=== PATIENT | male | born 1990 | race Caucasian/White ===

== ENCOUNTER 2021-10-02 08:28 | Emergency (ER) | payer OTHER, SELFPAY ==
[2021-10-02 08:41] VITALS: BP 128/69; PULSE 75; RESP 20; TEMP 36.7; O2SAT 98
--- NOTE | 2021-10-02 08:42 | ED.URI ---
HPI - URI/Sore Throat General Chief Complaint: Upper Respiratory Infection Stated Complaint: chest congestion cough Time Seen by Provider: 10/02/21 09:14 Source: patient and RN notes reviewed Mode of arrival: ambulatory Limitations: no limitations History of Present Illness HPI Narrative: 31-year-old male presents concern for persistent cough, chest congestion, nasal congestion and drainage. Reports nasal congestion for approximately 1 week, chest congestion and cough worsened over the last 3 days. Reports has been taking [id number] medications without. He reports fever yesterday. He denies chills, sweats. Reports general malaise. Reports his son had cold symptoms but they were not severe. MD elicited complaint: cough and nasal congestion Related Data Allergies Allergy/AdvReac Type Severity Reaction Status Date / Time No Known Allergies Allergy Verified 10/02/21 09:18 Review of Systems Review of Systems: CONSTITUTIONAL: Reports malaise, reports fever. EYES: Denies visual changes, redness, or discharge. ENT: Reports rhinorrhea, congestion. Denies sinus pain, otalgia and sore throat. CARDIOVASCULAR: Denies chest pain, palpitations, or edema. RESPIRATORY: Reports cough. Denies dyspnea. GASTROINTESTINAL: Denies abdominal pain, nausea, vomiting, diarrhea SKIN: Denies rash or itching. MUSCULOSKELETAL: Denies myalgia. NEUROLOGIC: Denies headache. All systems reviewed & are unremarkable except as noted in HPI and below PMFSH Comments At time of signature, agree with nursing past medical, surgical, social and family history. There is no relevant family history pertinent to the presenting complaint Exam Narrative: GENERAL: Well-appearing, well-nourished, and in no acute distress. HEAD: Normocephalic EYES: PERRLA, conjunctivae clear ENT: Nares clear, turbinates edematous and erythematous. Mucous membranes moist. TM pearly luque with dull light reflex bilaterally; no tragal tenderness. Oropharynx not erythematous without lesions. Tonsils not enlarged and without exudate, no drooling, no hoarseness, no trismus, uvula midline. NECK: Supple. No lymphadenopathy CHEST: Slight rhonchi in the right upper lobe, otherwise clear to auscultation, breath sounds equal. No wheezing, rales, or stridor. No respiratory distress, speaks in full sentences. Cough noted HEART: Regular rate and rhythm. No murmur heard. SKIN: Warm, dry, no rash. NEURO: Alert and oriented x3. PSYCH: Normal mood and affect Course Course Emergency Course: Patient is aware of diagnosis, understands and agrees to treatment plan. Anticipatory guidance given. Patient agrees to follow-up as directed and is aware of reasons to seek care at the emergency department. Portions of this record may have been created with voice recognition software Level of Care: Express Care Visit Vital Signs Vital signs: Reviewed. MDM - URI/Sore Throat MDM Narrative Medical decision making narrative: Differential diagnosis considered: Choi virus, strep pharyngitis, allergic rhinitis, upper respiratory tract infection, sinusitis, rhinosinusitis, nasopharyngitis. viral pharyngitis, otitis media, otitis externa, pneumonia, bronchitis, viral cough syndrome, viral syndrome, and influenza. Exam findings show no acute concerns or changes; patient is non-toxic appearing and is in no distress. Patient is appropriate for outpatient treatment and follow-up. Lab Data Attestation: I reviewed the patient's lab results. Critical Care Time Critical Care Time Critical Care Time: No Discharge Plan Discharge Clinical Impression: Sinobronchitis Patient Disposition: Home, Self-Care Condition: Stable Instructions: Antibiotic Form, Acute Bronchitis (ED) Additional Instructions: Take medications as prescribed Recommend antihistamine such as Benadryl at night time and Zyrtec or Maye during the day Cough syrup may cause drowsiness; avoid driving or take it at night time. Also, recommend sympto
== END 2021-10-02 09:28 | disposition home or self-care (01) ==
PROVIDERS: Emergency Provider Nurse Practitioner
DX: J32.9 Chronic sinusitis, unspecified (principal); J40 Bronchitis, not specified as acute or chronic
CPT/HCPCS: 99213; G0463

== ENCOUNTER 2022-02-13 17:54 | Emergency (ER) | payer OTHER, SELFPAY ==
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
[2022-02-13 18:05] VITALS: BP 121/78; PULSE 77; RESP 18; TEMP 36.8; O2SAT 99
--- NOTE | 2022-02-13 18:20 | PC.NURSE ---
PT DECLINED ICE FOR COMFORT
== END 2022-02-13 18:20 | disposition home or self-care (01) ==
PROVIDERS: Emergency Provider Nurse Practitioner Family
DX: L03.115 Cellulitis of right lower limb (principal); S81.801A Unspecified open wound, right lower leg, initial encounter; V86.96XA Unspecified occupant of dirt bike or motor/cross bike injured in nontraffic accident, initial encounter
CPT/HCPCS: 73590; 99213; G0463

== ENCOUNTER 2024-08-16 12:40 | Emergency (ER) | payer OTHER, SELFPAY ==
[2024-08-16 12:49] VITALS: BP 136/75; PULSE 85; RESP 16; TEMP 36.8; O2SAT 98
--- NOTE | 2024-08-16 12:52 | ED.EAR ---
HPI - Ear Problem General Chief complaint: Ear Stated complaint: Headache/Ear Pain Time Seen by Provider: 08/16/24 12:52 Source: patient Mode of arrival: ambulatory Limitations: no limitations History of Present Illness HPI Narrative: 34-year-old male presented for complaint of left ear, neck and head pain. Onset 4 days. He denies known injury but states he has been throwing wood. Also works out regularly. Denies Pain radiating into the arm, numbness, tingling, or weakness of the extremity. Rates pain 6/10. Taking hydrocodone for chronic back pain but states he has not had it for a week, has not taken anything for this pain. Denies tinnitus, dizziness, decreased hearing, nasal congestion, fever. MD Complaint: ear pain Related Data Home Medications ?Medication ?Instructions ?Recorded ?Confirmed ?Last Taken ?Type hydrocodone 7.5 mg-acetaminophen tablet 08/16/24 Unknown History 325 mg tablet testosterone cypionate 200 mg/mL mg 08/16/24 Unknown History intramuscular oil Allergies Allergy/AdvReac Type Severity Reaction Status Date / Time No Known Allergies Allergy Verified 02/13/22 17:59 Review of Systems Review of Systems: CONSTITUTIONAL: Denies malaise, chills, or fever. EYES: Denies visual changes, redness, or discharge. ENT: Denies rhinorrhea, congestion, sinus pain, and sore throat. Reports ear pain CARDIOVASCULAR: Denies chest pain, palpitations, or edema. RESPIRATORY: Denies cough or dyspnea. GASTROINTESTINAL: Denies abdominal pain, nausea, vomiting, diarrhea SKIN: Denies rash or itching. MUSCULOSKELETAL: Reports head and neck pain All systems reviewed & are unremarkable except as noted in HPI and below [facility] Comments At time of signature, agree with nursing past medical, surgical, social and family history. There is no relevant family history pertinent to the presenting complaint Exam Narrative: GENERAL: Well-appearing EYES: conjunctivae clear ENT: Nares clear. Mucous membranes moist. TM pearly luque with dull light reflex bilaterally; no tragal tenderness. Oropharynx not erythematous without lesions. no drooling, no hoarseness, no trismus, uvula midline. NECK: Supple. No lymphadenopathy, full ROM. Mild tender with palpation to left neck. CHEST: Clear to auscultation, breath sounds equal. HEART: Regular rate and rhythm. No murmur heard. SKIN: Warm, dry, no rash. NEURO: Alert and oriented x3. PSYCH: Normal mood and affect Course Course Emergency Course: Patient is aware of diagnosis, understands and agrees to treatment plan. Anticipatory guidance given. Patient agrees to follow-up as directed and is aware of reasons to seek care at the emergency department. Portions of this record may have been created with voice recognition software Level of Care: Express Care Visit Vital Signs Vital signs: Vital Signs Temperature 98.2 F 08/16/24 12:49 Pulse Rate 85 08/16/24 12:49 Respiratory Rate 16 08/16/24 12:49 Blood Pressure 136/75 08/16/24 12:49 Pulse Oximetry 98 08/16/24 12:49 Oxygen Delivery Room Air 08/16/24 12:49 Temperature 98.2 F 08/16/24 12:49 Pulse Rate 85 08/16/24 12:49 Respiratory Rate 16 08/16/24 12:49 Blood Pressure 136/75 08/16/24 12:49 Pulse Oximetry 98 08/16/24 12:49 Oxygen Delivery Room Air 08/16/24 12:49 Reviewed Medical Decision Making MDM Narrative Medical decision making narrative: Discussed physical exam findings, no apparent ear infection. Suspect musculoskeletal strain. Advised supportive measures and signs/symptoms to go to the ER. Patient is appropriate for outpatient treatment and follow-up with pcp. Differential Diagnosis Differential Diagnosis: Coronavirus, strep pharyngitis, allergic rhinitis, upper respiratory tract infection, sinusitis, rhinosinusitis, nasopharyngitis, viral pharyngitis, otitis media, otitis externa, eustachian tube dysfunction, foreign body, cerumen impaction. Vital Signs Vital Signs: Vital Signs Temperature 98.2 F 08/16/24 12:49 Pulse Rate 85 08/16/24 12:49 Respiratory Rate 16 08/16/24 12:49 Blood Pressure 136/75 08/16/24 12:49 Pulse Oximetry 98 08/16/24 12:49 Oxygen Delivery Room Air 08/16/24 12:49 Temperature 98.2 F 08/16/24 12:49 Pulse Rate 85 08/16/24 12:49 Respiratory Rate 16 08/16/24 12:49 Blood Pressure 136/75 08/16/24 12:49 Pulse Oximetry 98 08/16/24 12:49 Oxygen Delivery Room Air 03/26/25 12:49 Discharge Plan Discharge Clinical Impression: Headache Qualifiers: Headache type: unspecified Headache chronicity pattern: acute headache Intractability: not intractable Qualified Code(s): R51.9 - Headache, unspecified Patient Disposition: Home, Self-Care Condition: Stable Instructions: Antibiotic Form, Acute Headache (ED) Additional Instructions: Rest. Avoid pushing, pulling, lifting or anything that worsens the symptoms Tylenol 1000mg every 8 hours as needed Take the steroid as directed Cyclobenzaprine (Flexeril) is a muscle relaxer. Take it as directed. It can cause drowsiness so do not drive or operate machinery until you know how it makes you feel. Do not take it with other sedating medications. Alternate ice/heat to the site. Lidocaine or salon pas pain patch or use pain cream like icy/hot or biofreeze. Follow up with your primary care provider as needed in 1 week Go to the ER for worsening symptoms or concerns Patient Language: Azeri Prescriptions: New cyclobenzaprine 10 mg tablet 10 mg PO TID PRN (Reason: muscle spasm) Qty: 10 0RF methylprednisolone [Medrol (Mihai)] 4 mg tablets,dose pack See Rx Instructions .ROUTE .COMPLEX Qty: 21 0RF Rx Instructions: orally per package directions No Action oxycodone-acetaminophen 5-325 mg tablet hydrocodone-acetaminophen 7.5-325 mg tablet testosterone cypionate 200 mg/mL oil Follow-up/Referrals: PHYSICIAN,STUDENT CAREER DEVELOPMENT SPECIALIST [Primary Care Provider] - Time of Disposition: 13:01
--- OUTSIDE RECORDS SUMMARY | 2024-08-16 13:39 | XMS_ITS | Encounter Summary ---
Author Organization [facility] Address [address] [place] [address] Phone Care Team Providers Care Certified Prosthetist/Orthotist Name Role Phone René Gonsales MD Primary Care Provider [phone] Go Cassidy APRN, PEDIATRICS PHYSICIAN Unavailable Provider, None Primary Care Provider Unavailabl Alexander Winters DO Primary Care Provider [phone] Reason for Visit * Reason Comments Medication Refill Encounter Details Date Type Department Care Team (Late st Contact Info) Description 04/15/2022 Refill [facility] [address] [place] [id number] Go Cassidy APRN, PEDIATRICS PHYSICIAN [address] [place] [address] Medication Refill Social History Tobacco Use Types Packs/Day Years Used Date Smoking Tobacco: Former Cigarettes Q uit: 2008 Smokeless Tobacco: Never Comments:QUIT 17YRS AGO Alcohol Use Standard Drinks/Week Comments Yes 0 (1 standard drink = 0.6 oz pur e alcohol) OCASSIONALLY Sexually Active Control Partners Comments Yes Female Sex and Gender Information Value Date Recorded Sex Assigned at Not on file Legal Sex Male 12:28 AM CDT Gender Identity Not on file Sexual Orientation Not on file documented as of this encounter Plan of Treatment Not on file documented as of this encounter Visit Diagnoses Diagnosis Hypogonadism in male documented in this encounter Care Teams Certified Prosthetist/Orthotist Relationship Specialty Start Date End Date René Gonsales MD [address] [address] PCP - General Clinical Education Coordinator 09/16/21 08/14/23 Provider, None [place] PCP - General 08/15/23 12/28/23 Alexander Garzon DO [address] [place] [address] PCP - General Family Medicine 12/29/23 Go Cassidy APRN, PEDIATRICS PHYSICIAN [address] [place] [address] Nurse Practitioner Advanced Practice Nurse 02/23/22 documented as of this encounter
--- OUTSIDE RECORDS SUMMARY | 2024-08-16 13:39 | XMS_ITS | Encounter Summary ---
Author Organization [facility] Address [address] [place] [address] Phone Care Team Providers Care Wafer Cleaner Name Role Phone Go Cassidy APRN, CNP Unavailable Alexander Garzon DO Primary Care Provider [phone] Reason for Visit * Reason Comments Follow-up Encounter Details Date Type Department Care Team (Late st Contact Info) Description 08/15/2024 3:30 PM CDT Office Visit PENDING SALE TO [facility] [address] [place] [address] Go Cassidy APRN, MEDICAL NURSE [address] [place] [address] Hypogonadism in male (Primary Dx); Gynecomastia, male; Encounter for monitoring testosterone replacement therapy Discharge Disposition: Discharged to home or Selfcare Social History Tobacco Use Types Packs/Day Years Used Date Smoking Tobacco: Former Cigarettes Q uit: 2008 Smokeless Tobacco: Never Tobacco Cessation:Counseling Given: Not Answered Comments:QUIT 17YRS AGO Alcohol Use Standard Drinks/Week Comments Yes 0 (1 standard drink = 0.6 oz pur e alcohol) OCASSIONALLY Sexually Active Control Partners Comments Yes Female Sex and Gender Information Value Date Recorded Sex Assigned at Not on file Legal Sex Male 12:28 AM CDT Gender Identity Not on file Sexual Orientation Not on file documented as of this encounter Last Filed Vital Signs Vital Sign Reading Time Taken Comments Blood Pressure 144/91 08/15/2024 3:22 PM CDT Pulse 88 08/15/2024 3:22 PM CDT Temperature - - Respiratory Rate 12 08/15/2024 3:22 PM CDT Oxygen Saturation 98% 08/15/2024 3:22 PM CDT Inhaled Oxygen Concentration - - Weight 85.3 kg (188 lb) 08/15/2024 3:22 PM CDT Height 172.7 cm (5' 8 ) 08/15/2024 3:22 PM CDT Body Mass Index 28.59 08/15/2024 3:22 PM CDT documented in this encounter Progress Notes * Go Cassidy, [place], MEDICAL NURSE - 08/15/2024 3:30 PM CDT UROLOGY [facility] [address] [facility], [address] [place] [address] PHONE: FAX: Assessment & Plan Low T- will have patient get labs completed on Wednesday as he does this injections on Wednesday to get a mid cycle lab. Discussed that we may need to adjust his testosterone dosing versus adjust as anastrozole dosing. I will call with labs I will schedule follow-up at that time Gynecomastia- continue anastrozole. Re-eval labs Subjective: 09/25/2021 HPI: HPI: Blair Rowe presents for follow-up on low testosterone. Patient previously managed by Dr. Garcia. Original symptoms that patient had to seek care was decreased libido and fatigue. Patient was on IM TR T and had discussion with Dr. Garcia about fertility and different options to preserve fertility. Patient discussed with significant other the reports that they have 1 child and they are okay with not preserving fertility continuing with IM injections. Patient has been doing 150 mg intramuscular weekly. Patient denies any family history of prostate cancer. Most recent labs drawn on 09/03/2021 show a testosterone level of 662, and free testosterone of 20.17, and PSA of 0.57. He reports that symptoms are stable and denies any side effects of the medication. 02/24/2022 HPI: Blair Rowe presents to the office to follow-up on low testosterone. Patient has been doing 150 mg of testosterone cypionate every week. He reports his energy levels are good, libido is good, and he is not having any side effects of the medication. His last injection was 3 days ago. He is due for labs 07/07/2022 HPI: HPI: Blair Rowe presents to the office to follow-up on hypogonadism. The patient was previously taking testosterone supinate, but reports that he stop taking testosterone about 2 months ago as he his significant other trying to conceive. Last labs completed on 03/02/2022 showed testosteroneof 360, hematocrit of 48.3, a PSA of 5.2. He reports that since stopping the testosterone replacement therapy he has noticed progression in his symptoms with increased fatigue and decreased libido. 08/30/2023 HPI: HPI: Balir Rowe presents to the office for follow-up on low T. Patient was given trial of clomid which he reports he did not get much of a response from and only took medication for 2-3 months. He elected to hold off on TRT while he and his tried to have another child. He reports they were not able to conceive and is interested in re-starting his TRT. No recent labs. Does note that after starting clomid he developed some breast tenderness L > R and a small knot underneath his areola. 03/21/2024 HPI: HPI: Blair Rowe presents to the office for follow-up on low T. Patient had bilateral mammogram completed due to gynecomastia which was negative for malignancy. Patient was restarted on TRT 200 mg weekly and anastrozole 1 mg q3 days for the gynecomastia. Patient reports that medications havebeen working well and is no longer having breast tenderness. Labs as below. T is subtherapeutic butreports he was due for another injection at the time of the draw. Labs 03/15/2024 T- 212 Hct- 44.1 Estradiol- < 24 PSA- 0.63 08/15/2024 HPI: HPI: Blair Rowe presents to the office for six-month follow-up. He continues testosterone 200 mg weekly and anastrozole 1 mg every 3 days. Reports that energy level and libido a good, howeverhe has been running to have worsening gynecomastia and breast tenderness, particularly in the left side. He has not had recent labs. The following portions of the patient's chart were reviewed in this encounter and updated as appropriate: ROS: Review of Systems Constitutional: Negative for chills and fever. Respiratory: Negative for cough and shortness of breath. Cardiovascular: Negative for chest pain and palpitations. Gastrointestinal: Negative for abdominal pain, diarrhea, nausea and vomiting. Musculoskeletal: Negative for myalgias. Neurological: Negative for dizziness and weakness. Objective: Vital signs: There were no vitals taken for this visit. There were no vitals filed for this visit. Physical Exam Constitutional: Appearance: Normal appearance. HENT: Head: Normocephalic. Cardiovascular: Rate and Rhythm: Normal rate. Pulmonary: Effort: Pulmonary effort is normal. No respiratory distress. Chest: Comments: Gynecomastia Abdominal: General: Abdomen is flat. Palpations: Abdomen is soft. Tenderness: There is no abdominal tenderness. Musculoskeletal: Cervical back: Neck supple. Skin: General: Skin is warm and dry. Capillary Refill: Capillary refill takes less than 2 seconds. Neurological: General: No focal deficit present. Mental Status: He is alert and oriented to person, place, and time. Lab Results Component Value Date WBC 7.69 12/18/2023 HEMOGLOBIN 17.1 (H) 12/18/2023 PLATELETCNT 324 12/18/2023 MCV 82.6 12/18/2023 Lab Results Component Value Date SODIUM 140 12/18/2023 POTASSIUM 4.2 12/18/2023 CHLORIDE 104 12/18/2023 CO2VEN 26 12/18/2023 ANIONGAP 14.2 12/18/2023 GLUCOSE 91 12/18/2023 BUN 10 12/18/2023 CREATININE 1.24 12/18/2023 BCRATIO8 8 (L) 12/18/2023 TOTALPROTEIN 7.2 12/18/2023 ALBUMIN 4.4 12/18/2023 CALCIUM 9.5 12/18/2023 TBIL 0.4 12/18/2023 SGOTAST 37 (H) 12/18/2023 SGPTALT 55 12/18/2023 ALKALINEPHO 44 12/18/2023 GFRNA >60 12/18/2023 GFRA >60 12/18/2023 Lab Results Component Value Date PSASCREEN 0.63 03/15/2024 PSASCREEN 0.65 09/01/2023 PSASCREEN 0.59 07/15/2022 PSATOTAL 0.53 09/03/2021 Results for orders placed or performed during the hospital encounter of 03/29/21 URINALYSIS REFLEX IF INDICATED BY ABNORMAL RESULTS Result Value Ref Range Status SPECIFIC GRAVITY 1.005 1.003 - 1.030 Final URINE PH 7.0 5.0 - 9.0 Final WBC ESTERASE Negative Negative Final NITRITE Negative Negative Final PROTEIN, RANDOM URINE Negative Negative Final URINE GLUCOSE, QUAL Negative Negative Final URINE KETONES Negative Negative Final UROBILINOGEN Normal Normal mg/dL Final URINE BLOOD Negative Negative mingo/ul Final URINALYSIS COLOR Pale yellow Final URINALYSIS CLARITY Clear Final Lab Results Component Value Date TESTOSTTTL 212 (L) 03/15/2024 No results found for this or any previous visit from the past 365 days. There are no diagnoses linked to this encounter. By: Go Cassidy APRN, CNP, 08/15/2024, 12:32 PM CDT Primary Care Physician: Alexander Garzon DO documented in this encounter Plan of Treatment Not on file documented as of this encounter Visit Diagnoses Diagnosis Hypogonadism in male- Primary Gynecomastia, male Hypertrophy of breast Encounter for monitoring testosterone replacement therapy Encounter for therapeutic drug monitoring documented in this encounter Care Teams Wafer Cleaner Relationship Specialty Start Date End Date Alexander Garzon DO [address] [place] [address] PCP - General Family Medicine 12/29/23 Go Cassidy APRN, CNP [address] [place] [address] Nurse Practitioner Advanced Practice Nurse 02/23/22 documented as of this encounter
--- OUTSIDE RECORDS SUMMARY | 2024-08-16 13:39 | XMS_ITS | Encounter Summary ---
Author Organization [employer] Care Team Providers Care Development Editor Name Role Phone Go Cassidy APRN, CNP Unavailable [phone] Alexander Garzon DO Primary Care Provider [phone] Encounter Details Date Type Department Care Team (Latest Contact Info) Description 08/15/2024 Travel Social History Tobacco Use Types Packs/Day Years [...] documented as of this encounter Visit Diagnoses Not on filedocumented in this encounter Care Teams Development Editor Relationship Specialty Start Date End Date Alexander Garzon DO [address] [address] PCP - General Family Medicine 12/29/23 Go Cassidy APRN, CNP [address] [place] [address] Nurse Practitioner Advanced Practice Nurse 02/23/22 documented as of this encounter
--- OUTSIDE RECORDS SUMMARY | 2024-08-16 13:39 | XMS_ITS | Clinical Summary ---
Author Organization [facility] Address [address] [place] [address] Care Team Providers Care Blower And Compressor Assembler Name Role Phone No, Physician Primary Care Provider [phone] Allergies No known active allergies Medications naloxone (NARCAN) 4 mg/actuation spray,non-aeros ol Administer 1 spray (4 mg total) into affected nostril(s) as needed 4 Active testosterone cypionate (DEPO-TESTOTERO NE) 200 mg/mL injection Inject 1 mL (200 mg total) into the muscle as instructed once a week Takes on Mondays 4 Active omeprazole (PriLOSEC) 40 mg capsuleIndicati ons:acid reflux Take 1 capsule (40 mg total) by mouth 2 (two) times a day 4 Active aspirin 325 mg enteric coated tablet Take 1 tablet (325 mg total) by mouth daily Post operatively for DVT prophylaxis 30 tablet 4 Active senna-docusate (PERICOLACE) 8.6-50 mg Take 1 tablet by mouth 2 (two) times a day as needed for constipation 30 tablet 4 Active ondansetron (ZOFRAN) 4 mg tablet Take 1 tablet (4 mg total) by mouth every 8 (eight) hours as needed for nausea or vomiting 20 tablet 4 Active HYDROcodone-philomena taminophen (NORCO) 7.5-325 mg per tabletIndicatio ns:Pain Take 1 tablet by mouth every 6 (six) hours as needed for pain 28 tablet 4 Active Active Problems Problem Noted Date Diagnosed Date 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 exam benign. likely gerd vs dry irriation. advised to get humidifer at home. Patient wants to be seen by ENT for further work up possible tonsillectomy Gastroesophageal reflux disease without esophagi tis 07/03/2021 Assessment & Plan (07/03/2021 10:04 AM SOLAR APPLICATIONS DEVELOPMENT ENGINEER): Likely contributing factor to sore throat/irriation. Will do trial with ppi. ent referral Hemorrhoids 01/02/2021 Overview (01/02/2021): new problem, minimize constipation, prescribed stool softener with stimualnt, start using topical anesthetic for pain in mean time Foot callus 12/09/2020 Assessment & Plan (01/02/2021 11:00 PM CDT): - tapered off the callus manually, see procedure note - in case this has a component of plantar wart, liquid nitrogen treatment was also applied Assessment & Plan (12/09/2020 5:48 AM CDT): - tapered off the callus manually, see procedure note - doing well at this time, may need more treatments in future Former smoker 12/09/2020 Assessment & Plan (12/09/2020 5:49 AM CDT): Social History Tobacco Use Smoking Status Former Smoker Packs/day: 1.50 Smokeless Tobacco Never Used Annual visit for general horacio lt medical examination with abnormal findings 12/09/2020 Encounters Date Type Department Care Team Description 08/03/2024 2:55 PM CDT - 08/03/2024 11:59 PM CDT Hospital Encounter [facility] Radiology at [facility] [address] [place] [address] S/P orthopedic surgery, follow-up exam Discharge Disposition: Discharge to home or self care 08/03/2024 2:40 PM CDT Office Visit [facility] Orthopaedic Surgery [address] [facility] 1st Floor [address] [place] [address] Raghavendra Crain MD S/P orthopedic surgery, follow-up exam (Primary Dx) 06/16/2024 Telephone [facility] Orthopaedic Surgery [address] [facility] 1st Floor [address] [place] [address] Cornelius Lundberg, ATC 06/05/2024 2:40 PM SOLAR APPLICATIONS DEVELOPMENT ENGINEER Office Visit [facility] Orthopaedic Surgery [address] [facility] 6th [place] [address] [place] [address] Raghavendra Crain MD Left foot pain (Primary Dx); S/P orthopedic surgery, follow-up exam 06/05/2024 1:59 PM SOLAR APPLICATIONS DEVELOPMENT ENGINEER - 06/05/2024 11:59 PM SOLAR APPLICATIONS DEVELOPMENT ENGINEER Hospital Encounter [facility] [address] [place] [phone] Left foot pain Discharge Disposition: Discharge to home or self care from Last 3 Months Immunizations Immunization Administration Dates Next Due DTP 09/14/1994 Influenza, Unspecified 02/21/2021(Deferr ed: Patient Refused),02/22/2020 Jana (J&J) SARS-CoV-2 Vaccination 10/12/2020 OPV 09/14/1994 Tdap 11/28/2013 Surgical History Surgery Date Site/Laterality Comments FOOT SURGERY 05/24/2021 - 05/23/2022 Left plantar wart Medical History Medical History Date Comments No known health problems Family History Medical History Relation Name Comments COPD Father Breast cancer Maternal Grandmother passed in her mid 40s No Known Problems Mother Cancer Other Family history of cancer; Relation Name Status Comments Father Alive Maternal Grandmother Mother Alive Other Social History Tobacco Use Types Packs/Day Years Used Date Smoking Tobacco: Former Cigarettes 1.5 2 2 006 - 2007 Passive Smoke Exposure: Never Smokeless Tobacco: Never Comments:Patient quit smokin g at age 17. Alcohol Use Standard Drinks/Week Comments Yes 0 (1 standard drink = 0.6 oz pur e alcohol) AUDIT-C Answer Date Recorded Q1: How often do you have a drink containing alc ohol? Monthly or less 04/28/2024 Q2: How many drinks containi ng alcohol do you have on a typical day when you are drinking? 1 or 2 04/28/2024 Q3: How often do you have si x or more drinks on one occasion? Never 04/28/2024 PHQ-2 Answer Date Recorded PHQ-2 Total Score (If total score is 3 or more points, staff should administer the PHQ-9) 0 07/03/2021 Personal Safety Answer Date Recorded Have you ever been in or are you currently in a harmful physical or emotional relationship or is someone making you feel afraid or unsafe? Denies 04/28/2024 Sex and Gender Information Value Date Recorded Sex Assigned at Not on file Legal Sex Male 9:38 AM SOLAR APPLICATIONS DEVELOPMENT ENGINEER Gender Identity Not on file Sexual Orientation Not on file Obstetrics History Last Filed Vital Signs Vital Sign Reading Time Taken Comments Blood Pressure 125/75 04/29/2024 8:18 AM SOLAR APPLICATIONS DEVELOPMENT ENGINEER Pulse 80 04/29/2024 8:18 AM SOLAR APPLICATIONS DEVELOPMENT ENGINEER Temperature 37 C (98.6 F) 04/29/2024 8:18 AM SOLAR APPLICATIONS DEVELOPMENT ENGINEER Respiratory Rate 16 04/29/2024 8:18 AM SOLAR APPLICATIONS DEVELOPMENT ENGINEER Oxygen Saturation 97% 04/29/2024 8:18 AM SOLAR APPLICATIONS DEVELOPMENT ENGINEER Inhaled Oxygen Concentration - - Weight 90.7 kg (200 lb) 08/03/2024 2:54 PM CDT Height 175.3 cm (5' 9 ) 08/03/2024 2:54 PM CDT Body Mass Index 29.53 08/03/2024 2:54 PM CDT Plan of Treatment Health Maintenance Due Date Last Done Comments Hepatitis C Screening 1989 Varicella Vaccines (1 of 2 - 13+ 2-dose series) 2002 Hepatitis B Screening 2007 Regular Well Visit/Exam 18-64 12/03/2021 12/03/2020 Depression Screening 07/03/2022 07/03/2021, 01/02/2021, 12/03/2020 DTaP/Tdap/Td Vaccine (3 - Td or Tdap) 11/29/2023 11/28/2013, 09/14/1994 Covid-19 Vaccine (2 - 2023-2 5 season) 2024 10/12/2020 Influenza Vaccine (#1) 2024 02/22/2020 HPV Vaccines Aged Out No longer eligi ble based on patient's age to complete this topic Pneumococcal vaccine <65 Aged Out No longer eligible based on patient's age to complete this topic Medical Devices Implanted Type Area Aluminum Welder Device Identifier Shelf Expiration Date Model / Serial / Lot [employer] Graft Bone Filler Cortical Cancellous Cyro Freezer Arthrocell 5cc Putty Abs-2008-09 - [id number] - [id number] Implanted:Qty: 1 on 04/28/2024 by Raghavendra Crain MD at [facility] Left: Ankle [employer] Inc 12/24/2025 ABS-2008-09 / [id number] / [id number] Allosource Freeze Dried Chips Graft 15ml Bone Cancellous Cortical [id number] - [id number] - [id number] Implanted:Qty: 1 on 04/28/2024 by Raghavendra Crain MD at [facility] Left: Ankle Allosource 10/19/2028 [id number] / [id number] / [id number] Ar[employer]rex [employer] Low Profile Screws 6.7mm 85mm 28mm Self Drill Self Tap Cannulated [id number] - [id number] Implanted:Qty: 1 on 04/28/2024 by Raghavendra Crain MD at [facility] Left: Ankle [employer] [id number] / / [employer] Low Profile Screws 4.5mm 55mm Self Drill Self Tap Cannulated Hex [id number] - [id number] Implanted:Qty: 1 on 04/28/2024 by Raghavendra Crain MD at [facility] Left: Ankle [employer] [id number] / / Explanted Type Area Aluminum Welder Device Identifier Shelf Expiration Date Model / Serial / Lot [employer] Mason .062in 9in Trocar Point One End Orthopedic Wire [id number] - [id number] Explanted:Qty: 2 on 04/28/2024 by Raghavendra Crain MD at [facility] Left: Ankle [employer] 05/14/2028 [id number] / / Procedures Procedure Name Priority Date/Time Associated Diagnosis Comments XR ANKLE LEFT 2 VIEWS Schedule Routine, Read Routine (OP Routine) 08/03/2024 3:03 PM CDT S/P orthopedic surgery, follow-up exam XR FOOT LEFT 3 OR MORE VIEWS Schedule Routine, Read Routine (OP Routine) 08/03/2024 3:03 PM CDT S/P orthopedic surgery, follow-up exam ORTHO CASTING/SPLINTING Routine 06/05/2024 3:22 PM SOLAR APPLICATIONS DEVELOPMENT ENGINEER Left foot pain XR ANKLE LEFT 3 OR MORE VIEWS Schedule Routine, Read Routine (OP Routine) 06/05/2024 3:04 PM SOLAR APPLICATIONS DEVELOPMENT ENGINEER Left foot pain XR FOOT LEFT 3 OR MORE VIEWS Schedule Routine, Read Routine (OP Routine) 06/05/2024 3:04 PM SOLAR APPLICATIONS DEVELOPMENT ENGINEER Left foot pain from Last 3 Months Results * XR Foot Left 3 or More Views (08/03/2024 3:03 PM CDT) Anatomical Region Laterality Modality Lower Extremities, Foot Left Computed Radiography 08/03/2024 3:10 PM CDT Impressions 08/03/2024 3:10 PM CDT Healing internally fixated subtalar arthrodesis in expected position. Electronically signed by: Keith Hernández M.D. Narrative 08/03/2024 3:10 PM CDT XR FOOT LEFT 3 OR MORE VIEWS, XR ANKLE LEFT 2 VIEWS HISTORY: Left ankle and foot pain. FINDINGS: 2 weightbearing views of the left ankle and 3 weightbearing views of the left foot are obtained and compared with 06/05/2024. There is redemonstrated healing internally fixated subtalar arthrodesis. Hardware is intact. The talar dome and ankle mortise are intact. Joint spaces are preserved. Alignment and soft tissues are normal. Procedure Note Keith Hernández MD - 08/03/2024 XR FOOT LEFT 3 OR MORE VIEWS, XR ANKLE LEFT 2 VIEWS HISTORY: Left ankle and foot pain. FINDINGS: 2 weightbearing views of the left ankle and 3 weightbearing views of the left foot are obtained and compared with 06/05/2024. There is redemonstrated healing internally fixated subtalar arthrodesis. Hardware is intact. The talar dome and ankle mortise are intact. Joint spaces are preserved. Alignment and soft tissues are normal. IMPRESSION: Healing internally fixated subtalar arthrodesis in expected position. Electronically signed by: Keith Hernández M.D. us Raghavendra Crain MD IMG XR PROCEDURES Final Res ult * XR Ankle Left 2 Views (08/03/2024 3:03 PM CDT) Anatomical Region Laterality Modality Lower Extremities, Ankle Left Compute d Radiography 08/03/2024 3:10 PM CDT Impressions 08/03/2024 3:10 PM CDT Healing internally fixated subtalar arthrodesis in expected position. Electronically signed by: Keith Hernández M.D. Narrative 08/03/2024 3:10 PM CDT XR FOOT LEFT 3 OR MORE VIEWS, XR ANKLE LEFT 2 VIEWS HISTORY: Left ankle and foot pain. FINDINGS: 2 weightbearing views of the left ankle and 3 weightbearing views of the left foot are obtained and compared with 06/05/2024. There is redemonstrated healing internally fixated subtalar arthrodesis. Hardware is intact. The talar dome and ankle mortise are intact. Joint spaces are preserved. Alignment and soft tissues are normal. Procedure Note Keith Hernández MD - 08/03/2024 XR FOOT LEFT 3 OR MORE VIEWS, XR ANKLE LEFT 2 VIEWS HISTORY: Left ankle and foot pain. FINDINGS: 2 weightbearing views of the left ankle and 3 weightbearing views of the left foot are obtained and compared with 06/05/2024. There is redemonstrated healing internally fixated subtalar arthrodesis. Hardware is intact. The talar dome and ankle mortise are intact. Joint spaces are preserved. Alignment and soft tissues are normal. IMPRESSION: Healing internally fixated subtalar arthrodesis in expected position. Electronically signed by: Keith Hernández M.D. Raghavendra Crain MD IMG XR PROCEDURES Final Res ult * Ortho Casting/Splinting Documentation (06/05/2024 3:22 PM SOLAR APPLICATIONS DEVELOPMENT ENGINEER) Narrative Refugio Singh - 06/05/2024 3:22 PM SOLAR APPLICATIONS DEVELOPMENT ENGINEER Refugio Singh 06/05/2024 4:00 PM Ortho Casting/Splinting Documentation Date/Time: 06/05/2024 3:22 PM Performed by: Refugio Singh Authorized by: Raghavendra Crain MD Sensation: Normal Skin Condition: Clean, dry, and intact [place]/Sutures Removed: No Pin Pulled: No Cast Removed: No (left ankle) Supplies: Cast removal only Capillary Refill: Normal Patient tolerance of procedure: Tolerated well, no immediate complications Raghavendra Crain MD IN CLINIC/BEDSIDE ORDERABLE S Final Result * XR Foot Left 3 or More Views (06/05/2024 3:04 PM SOLAR APPLICATIONS DEVELOPMENT ENGINEER) Anatomical Region Laterality Modality Lower Extremities, Foot Left Computed Radiography 06/05/2024 4:05 PM SOLAR APPLICATIONS DEVELOPMENT ENGINEER Impressions 06/05/2024 4:05 PM SOLAR APPLICATIONS DEVELOPMENT ENGINEER 1. New healing internally fixated subtalar arthrodesis. Electronically signed by: Stefano Cazares D.O. Narrative 06/05/2024 4:05 PM SOLAR APPLICATIONS DEVELOPMENT ENGINEER EXAMINATION: XR FOOT LEFT 3 OR MORE VIEWS, XR ANKLE LEFT 3 OR MORE VIEWS HISTORY: Left ankle left foot pain FINDINGS: Comparison with CT dated 03/09/2024. New healing internally fixated subtalar arthrodesis. The ankle mortise is intact. Heterotopic ossification adjacent to the lateral malleolus. 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 Procedure Note Stefano Cazares DO - 06/05/2024 EXAMINATION: XR FOOT LEFT 3 OR MORE VIEWS, XR ANKLE LEFT 3 OR MORE VIEWS HISTORY: Left ankle left foot pain FINDINGS: Comparison with CT dated 03/09/2024. New healing internally fixated subtalar arthrodesis. The ankle mortise is intact. Heterotopic ossification adjacent to the lateral malleolus. 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 IMPRESSION: 1. New healing internally fixated subtalar arthrodesis. Electronically signed by: Stefano Cazares D.O. Raghavendra Crain MD [facility] XR PROCEDURES Final Res ult * XR Ankle Left 3 or More Views (06/05/2024 3:04 PM SOLAR APPLICATIONS DEVELOPMENT ENGINEER) Anatomical Region Laterality Modality Lower Extremities, Ankle Left Compute d Radiography 06/05/2024 4:05 PM SOLAR APPLICATIONS DEVELOPMENT ENGINEER Impressions 06/05/2024 4:05 PM SOLAR APPLICATIONS DEVELOPMENT ENGINEER 1. New healing internally fixated subtalar arthrodesis. Electronically signed by: Stefano Cazares D.O. Narrative 06/05/2024 4:05 PM SOLAR APPLICATIONS DEVELOPMENT ENGINEER EXAMINATION: XR FOOT LEFT 3 OR MORE VIEWS, XR ANKLE LEFT 3 OR MORE VIEWS HISTORY: Left ankle left foot pain FINDINGS: Comparison with CT dated 03/09/2024. New healing internally fixated subtalar arthrodesis. The ankle mortise is intact. Heterotopic ossification adjacent to the lateral malleolus. 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 Procedure Note Stefano Cazares DO - 06/05/2024 EXAMINATION: XR FOOT LEFT 3 OR MORE VIEWS, XR ANKLE LEFT 3 OR MORE VIEWS HISTORY: Left ankle left foot pain FINDINGS: Comparison with CT dated 03/09/2024. New healing internally fixated subtalar arthrodesis. The ankle mortise is intact. Heterotopic ossification adjacent to the lateral malleolus. 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 IMPRESSION: 1. New healing internally fixated subtalar arthrodesis. Electronically signed by: Stefano Cazares D.O. Raghavendra Crain MD [facility] XR PROCEDURES Final Res ult from Last 3 Months Insurance [facility] OPEN ACCESS Member Subscriber Plan / Payer (Ef fective 2024-Present) Name:Blair Rowe Relation to Subscriber:Self Name:Blair Rowe Payer ID:[id number] ([facility]) Type:CIGNA HMO/PPO Address: [address] [place] [address] R [facility] OPEN ACCESS Advance Directives For more information, please contact: [phone] * Full Code (Latest Code Status on File) Date Activated Date Inactivated Comments 04/28/2024 6:31 PM 04/29/2024 3:12 PM Care Teams Blower And Compressor Assembler Relationship Specialty Start Date End Date No, Physician PCP - General 03/31/24
--- OUTSIDE RECORDS SUMMARY | 2024-08-16 13:39 | XMS_ITS ---
Author Name HOWARD LAURENT Address [address] [place] [address] Phone Organization [facility] Address [address] [place] [address] Phone Care Team Providers Care Leather Currier Name Role Phone SAMROSIE DO LAWRENCE Unavailable ALLERGIES, ADVERSE REACTIONS AND ALERTS Allergy Name Allergy Date Allergy Status Allergy Severity Allergy Reaction UNKNOWN DRUG ALLERGIES MAY E XIST MEDICATIONS RxNorm Brand Name Prescription Ordered Value Order Unit Start Date Date Status Fill Status Indications [id number] hydrocod one-acet aminophe n 7.5-325 mg tablet SIG: hydrocodone-a cetaminophen 7.5-325 mg oral tablet, 14 days, Dispense #42 Tablet, 0 Refills, Directions: TAKE 1 TABLET BY MOUTH THREE TIMES DAILY 42 tablet 2023 Current M54.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 30 cream 2023 Current [id number] omeprazo le 40 mg capsule, delayed release( DR/EC) SIG: omeprazole 40 mg oral capsule,delay ed release(DR/EC ), 90 days, Dispense #90 Capsule, 0 Refills, Directions: Take 1 oral capsule once a day on an empty stomach. 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, SEQUELA DISP FX OF POSTERIOR PROCESS OF LEFT TALUS, SEQUELA Chronic 03/14/2024 E78.49-OTHER HYPERLIPIDEMIA OTHER HYPERLIPIDEMIA Chronic 03/23/2024 E55.9-VITAMIN D DEFICIENCY, UNSPECIFIED VITAMIN D DEFICIENCY, UNSPECIFIED Chronic 03/23/2024 R94.5-Abnormal results of liver function studies Abnormal results of liver function studies Chronic 03/23/2024 PROCEDURES Procedure Description Date Notes NO PROCEDURES PERFORMED ASSESSMENTS Assessment None PLAN OF TREATMENT Assessment Planned Activity LOINC Planned Mikie e None CONSULTATION NOTE Note Author Date None HISTORY AND PHYSICAL NOTE Note Author Date None PROGRESS NOTE Note Author Date None DISCHARGE SUMMARY Note Author Date None CHIEF COMPLAINT AND REASON FOR VISIT FUNCTIONAL STATUS Functional or Cognitive Find ing None MENTAL STATUS Cognitive Finding None ENCOUNTERS Encounter Type Provider Diagnoses Start Date Location None SOCIAL HISTORY Social Status Observation Unknown if ever smoked Sex:Male CARE TEAM INFORMATION Leather Currier Provider ID Role Location Phone HOWARD LAURENT [phone] PHYSICIAN [address] [place] [address]
--- OUTSIDE RECORDS SUMMARY | 2024-08-16 13:39 | XMS_ITS | Referral Summary ---
Author Organization [facility] Address [address] [place] [address] Care Team Providers Care Circulator Name Role Phone No, Physician Primary Care Provider [phone] Encounters Date Type Department Care Team Description 08/03/2024 2:55 PM CDT - 08/03/2024 11:59 PM CDT Hospital Encounter [facility] at [facility] [address] [place] [address] S/P orthopedic surgery, follow-up exam Discharge Disposition: Discharge to home or self care 08/03/2024 2:40 PM CDT Office Visit [facility] Orthopaedic Surgery [address] [place] [address] 1st Floor [address] [place] [address] Raghavendra Crain MD S/P orthopedic surgery, follow-up exam (Primary Dx) 06/16/2024 Telephone [facility] Orthopaedic Surgery [address] [facility] 1st Floor [address] [place] [address] Cornelius Lundberg, ATC 06/05/2024 1:59 PM PLANT TECHNICIAN - 06/05/2024 11:59 PM PLANT TECHNICIAN Hospital Encounter [facility] [address] [place] [address] Left foot pain Discharge Disposition: Discharge to home or self care 06/05/2024 2:40 PM PLANT TECHNICIAN Office Visit [facility] Orthopaedic Surgery [address] [place] [address] [facility] 6th [place] [address] [place] [address] Raghavendra Crain MD Left foot pain (Primary Dx); S/P orthopedic surgery, follow-up exam from Last 3 Months Allergies No known active allergies Medications naloxone [...] 07/03/2021 Assessment & Plan (07/03/2021 10:04 AM PLANT TECHNICIAN): no documented previous infections, wants to be seen to possible have tonsils removed. exam benign. likely gerd vs dry irriation. advised to get humidifer at home. Patient wants to be seen by ENT for further work up possible tonsillectomy Gastroesophageal reflux disease without esophagi tis 07/03/2021 Assessment & Plan (07/03/2021 10:04 AM PLANT TECHNICIAN): Likely contributing factor to sore throat/irriation. Will [...] lt medical examination with abnormal findings 12/09/2020 Immunizations Immunization Administration Dates Next Due DTP 09/14/1994 Influenza, Unspecified 02/21/2021(Deferr ed: Patient Refused),02/22/2020 Jana (J&J) SARS-CoV-2 Vaccination 10/12/2020 OPV 09/14/1994 Tdap 11/28/2013 Social History Tobacco Use Types Packs/Day Years [...] on file Legal Sex Male 9:38 AM PLANT TECHNICIAN Gender Identity Not on file Sexual Orientation Not on file Last Filed Vital Signs Vital Sign Reading Time Taken Comments Blood Pressure 125/75 04/29/2024 8:18 AM PLANT TECHNICIAN Pulse 80 04/29/2024 8:18 AM PLANT TECHNICIAN Temperature 37 C (98.6 F) 04/29/2024 8:18 AM PLANT TECHNICIAN Respiratory Rate 16 04/29/2024 8:18 AM PLANT TECHNICIAN Oxygen Saturation 97% 04/29/2024 8:18 AM PLANT TECHNICIAN Inhaled Oxygen Concentration - - Weight 90.7 kg (200 lb) 08/03/2024 2:54 PM CDT Height 175.3 cm (5' 9 ) 08/03/2024 2:54 PM CDT Body Mass Index 29.53 08/03/2024 2:54 PM CDT Plan of Treatment Not on file Medical Devices Implanted Type Area Arboriculture Teacher Device Identifier Shelf Expiration Date Model / Serial / Lot [employer] Graft Bone Filler Cortical Cancellous Cyro Freezer Arthrocell 5cc Putty Abs-2008-09 - [id number] - [id number] Implanted:Qty: 1 on 04/28/2024 by Raghavendra Crain MD at [facility] Left: Ankle [employer]rex Inc 12/24/2025 ABS-2008-09 / [id number] / [id number] 62-23 Allosource Freeze Dried Chips Graft 15ml Bone Cancellous Cortical [id number] - [id number] - [id number] Implanted:Qty: 1 on 04/28/2024 by Raghavendra Crain MD at [facility] Left: Ankle Allosource 10/19/2028 [id number] / [id number] / [id number] Ar[employer]rex Inc Low Profile Screws 6.7mm 85mm 28mm Self Drill Self Tap Cannulated [id number] - [id number] Implanted:Qty: 1 on 04/28/2024 by Raghavendra Crain MD at [facility] Left: Ankle [employer] [id number] / / [employer] Low Profile Screws 4.5mm 55mm Self Drill Self Tap Cannulated Hex [id number] - [id number] Implanted:Qty: 1 on 04/28/2024 by Raghavendra Crain MD at [facility] Left: Ankle [employer] [id number] / / Explanted Type Area Arboriculture Teacher Device Identifier Shelf Expiration Date Model / Serial / Lot [employer] Mason .062in 9in Trocar Point One End Orthopedic Wire [id number] - [id number] Explanted:Qty: 2 on 04/28/2024 by Raghavendra Crain MD at [facility] Left: Ankle [employer] 05/14/2028 [id number] S / / Procedures Procedure Name Priority Date/Time Associated Diagnosis Comments XR ANKLE LEFT 2 VIEWS Schedule Routine, Read Routine (OP Routine) 08/03/2024 3:03 PM CDT S/P orthopedic surgery, follow-up exam XR FOOT LEFT 3 OR MORE VIEWS Schedule Routine, Read Routine (OP Routine) 08/03/2024 3:03 PM CDT S/P orthopedic surgery, follow-up exam ORTHO CASTING/SPLINTING Routine 06/05/2024 3:22 PM PLANT TECHNICIAN Left foot pain XR ANKLE LEFT 3 OR MORE VIEWS Schedule Routine, Read Routine (OP Routine) 06/05/2024 3:04 PM PLANT TECHNICIAN Left foot pain XR FOOT LEFT 3 OR MORE VIEWS Schedule Routine, Read Routine (OP Routine) 06/05/2024 3:04 PM PLANT TECHNICIAN Left foot pain from Last 3 Months [...] * Ortho Casting/Splinting Documentation (06/05/2024 3:22 PM PLANT TECHNICIAN) Narrative Refugio Singh - 06/05/2024 3:22 PM PLANT TECHNICIAN Refugio Singh 06/05/2024 4:00 PM Ortho Casting/Splinting Documentation Date/Time: 06/05/2024 3:22 PM Performed by: Refugio Singh Authorized by: Raghavendra Crain MD Sensation: Normal Skin Condition: Clean, dry, and intact Kiet/Sutures Removed: No Pin Pulled: No Cast Removed: No (left ankle) Supplies: Cast removal only Capillary Refill: Normal Patient tolerance of procedure: Tolerated well, no immediate complications us Raghavendra Crain MD IN CLINIC/BEDSIDE ORDERABLE S Final Result * XR Foot Left 3 or More Views (06/05/2024 3:04 PM PLANT TECHNICIAN) Anatomical Region Laterality Modality Lower Extremities, Foot Left Computed Radiography 06/05/2024 4:05 PM PLANT TECHNICIAN Impressions 06/05/2024 4:05 PM PLANT TECHNICIAN 1. New healing internally fixated subtalar arthrodesis. Electronically signed by: Stefano Cazares D.O. Narrative 06/05/2024 4:05 PM PLANT TECHNICIAN EXAMINATION: XR FOOT LEFT 3 OR MORE VIEWS, XR ANKLE LEFT 3 OR MORE VIEWS HISTORY: Left ankle left foot pain FINDINGS: Comparison with CT dated 03/09/2024. New healing internally fixated subtalar arthrodesis. The ankle mortise is intact. Heterotopic ossification adjacent to the lateral malleolus. 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 Procedure Note Stefano Cazares, DO - 06/05/2024 EXAMINATION: XR FOOT LEFT [...] by: Stefano Cazares D.O. Raghavendra Crain MD IMG XR PROCEDURES Final Res ult * XR Ankle Left 3 or More Views (06/05/2024 3:04 PM PLANT TECHNICIAN) Anatomical Region Laterality Modality Lower Extremities, Ankle Left Compute d Radiography 06/05/2024 4:05 PM PLANT TECHNICIAN Impressions 06/05/2024 4:05 PM PLANT TECHNICIAN 1. New healing internally fixated subtalar arthrodesis. Electronically signed by: Stefano Cazares D.O. Narrative 06/05/2024 4:05 PM PLANT TECHNICIAN EXAMINATION: XR FOOT LEFT 3 OR MORE [...] by: Stefano Cazares D.O. Raghavendra Crain MD IMG XR PROCEDURES Final Res ult from Last 3 Months Insurance [facility] OPEN ACCESS [facility] OPEN ACCESS Advance Directives For more information, please contact: [phone] * Full Code (Latest Code Status on File) Date Activated Date Inactivated Comments 04/28/2024 6:31 PM 04/29/2024 3:12 PM Care Teams Circulator Relationship Specialty Start Date End Date No, Physician PCP - General 03/31/24
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
--- OUTSIDE RECORDS SUMMARY | 2024-08-16 13:42 | XMS_ITS ---
Author Name HOWARD LAURENT Address [address] [place] [address] Phone Organization [facility] Address [address] [place] [address] Phone Care Team Providers Care Diagnostic Imaging Manager Name Role Phone SAMROSIE DO LAWRENCE Unavailable ALLERGIES, ADVERSE REACTIONS AND ALERTS Allergy Name Allergy Date Allergy Status Allergy Severity Allergy Reaction UNKNOWN DRUG ALLERGIES MAY E XIST MEDICATIONS RxNorm Brand Name Prescription Ordered Value Order Unit Start Date Date Status Fill Status Indications 319176 hydrocod one-acet aminophe n 7.5-325 mg tablet SIG: hydrocodone-a cetaminophen 7.5-325 mg oral tablet, 14 days, Dispense #42 Tablet, 0 Refills, Directions: TAKE 1 TABLET BY MOUTH THREE TIMES DAILY 42 tablet 2023 Current M54.16 - RADICULOPATHY, 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
--- OUTSIDE RECORDS SUMMARY | 2024-08-16 13:42 | XMS_ITS | Continuity of Care Document ---
Author Organization [facility] Address [address] [employer] [place] [address] Phone Care Team Providers Care Research Advisor Name Role Phone Hansel Hayward MD Unavailable [...] Copied on Encounter OFFICE/OUTPA TIENT VISIT, EST [facility], [address] [place], [place], [id number], [place] tel:[phone] [facility] GERD1 (chief complaint) low t (chief complaint) pain1 (chief complaint) weight gain1 (chief complaint) Testicular hypogonadismGERD w/o esophagitisChronic pain syndromeAbnormal weight gain [address], [address], [place], [place], [id number] , [place]. tel:[phone] Referring Provider: Afia [address], [place], [place], [id number]. tel:[phone] OFFICE/OUTPA TIENT VISIT, [facility], [address], [place], [place], [id number], [place] tel:[phone] [facility] left elbow pain1 (chief complaint) Lateral epicondylitis, left elbow 0 [address], [address], [place], [place], [id number] , [place]. [phone] Referring Provider: Afia Enri[address], [place], [place], [id number]. tel:[phone] OFFICE/OUTPA TIENT VISIT, [facility], [address], [place], [place], [id number], [place] tel:[phone] [facility] back pain1 (chief complaint) lip (chief complaint) HTN (chief complaint) Angular cheilitisEssential (primary) hypertension [address], [place], [place], [address] , [place]. [phone] Referring Provider: Afia [address], [place], [place], [id number]. tel:[phone] OFFICE/OUTPA TIENT VISIT, [facility], [address], [place], [place], [id number], [place] tel:[phone] [facility] back pain1 (chief complaint) lip crack1 (chief complaint) Paresthesia of skinAngular cheilitis [address], [place], [place], [address] , [place]. tel:[phone] Referring Provider: [address], [address]. tel:[phone] PREV VISIT, NEW, AGE 18-39 [facility], [address], [place], [place], [address], tel:[phone] [facility] Medicine Physical (chief complaint) Encounter for general adult medical exam w abnormal findingsParesthesia of skin 9 [address] [facility], [place], [place], [address] , [place]. tel:[phone] Referring Provider: Hansel Hayward, Af[address] [facility] [facility], [place], [place], [id number]. tel:[phone] Family History Family Member Type Diagnosis Age At Onset Father Problem (finding) COPD Brother Problem (finding) Alive and well Mother Problem (finding) Alive and well Payers Payer name Insurance type Covered libertarian ID Authoriza tion(s) [facility] [id number] [id number] Social History Type Description Quantity Date Captured [...] compl eted Goal Tobacco cessation counseling completed Goal Special diet education compl eted Referral Ordered: ESOPH ENDOSCOPY, DILATION ordered Referral Ordered: Dangelo Pierce -[facility] : Orthopaedic Surgery (related to Lateral epicondylitis, left elbow) ordered Referral Referred To: Dangelo Pierce [address], [place], [phone] Ordered: Referrals: [facility]opathic [facility] Osteopathic Physicians : [...] to pain Instructions Date Instruction Additional Infor mation Special diet education Related t o Body mass index (BMI) 25.0-25.9, adult Follow a low salt diet. Related to Paresthesia of skin Special diet education Related t o Body mass index (BMI) 25.0-25.9, adult Increase physical activity Relat ed to Encounter for general adult medical exam w abnormal findings Assessments Type Assessment Date assessment Testicular hypogonadism 025 assessment GERD w/o esophagitis assessment Chronic pain syndrome 5 assessment Abnormal weight gain Mental Status Date Cognitive Assessment Orientation - [place] ed to time, place, person, situation.
== END 2024-08-16 13:05 | disposition home or self-care (01) ==
PROVIDERS: Emergency Provider Nurse Practitioner Family
DX: R51.9 Headache, unspecified (principal)
CPT/HCPCS: 99213; G0463